=== PATIENT | male | born 1995 | race Caucasian/White ===

== ENCOUNTER 2018-01-12 19:05 | Emergency (ER) | payer OTHER, SELFPAY ==
[2018-01-12 19:17] VITALS: BP 138/76; PULSE 98; RESP 18; TEMP 38; O2SAT 99; BMI 21.2
[2018-01-12 19:23] VITALS: TEMP 38
[2018-01-12] MEDS: IBUPROFEN 400 MG TABLET 800 MG PO (19:23)
--- NOTE | 2018-01-12 21:06 | ED_ITS ---
HPI - URI/Sore Throat <AKIRA Granados - Last Filed: 01/12/18 21:26> General Chief Complaint: Upper Respiratory Symptoms Stated Complaint: STATES WHITE SPOTS IN BACK OF THROAT Time Seen by Provider: 01/12/18 20:54 Source: patient Mode of arrival: ambulatory Limitations: no limitations History of Present Illness HPI Narrative: Patient presents with 1 week of fever, nausea, and sore throat. States he feels like he is swallowing glass. Also has low-grade fever. Slight cough, slight congestion but that is only present today. Denies chest pain, denies shortness of breath, denies abdominal pain. Has been exposed to illness through . Concerns strep throat. States he saw red and white spots on back throat. Related Data Previous Rx's Medication Instructions Recorded amoxicillin 1,000 mg PO BID 10 Days #40 cap 01/12/18 Allergies Allergy/AdvReac Type Severity Reaction Status Date / Time No Known Drug Allergies Allergy Verified 01/12/18 19:19 Review of Systems <AKIRA Granados - Last Filed: 01/12/18 21:26> Review of Systems GENERAL: See HPI HEENT: HPI RESPIRATORY: Denies dyspnea, cough, wheezing, hemoptysis, sputum. CARDIOVASCULAR: Denies chest pain, palpitations, orthopnea, edema, GASTROINTESTINAL: Denies nausea, vomiting, abdominal pain, diarrhea, constipation, melena. : Denies dysuria, frequency, incontinence, hematuria, urinary retention. MUSCULOSKELETAL: denies weakness, joint pain, or bony pain SKIN: Denies rash, skin lesions, or other NEUROLOGIC: Denies weakness, headache, numbness, change in speech, confusion, seizures, incoordination. PSYCHIATRIC: No concerning psychosocial issues. 12 point review of systems is negative except for those stated above Exam <AKIRA Granados - Last Filed: 01/12/18 21:26> Narrative Exam Narrative: GENERAL: This is a well-nourished, well-developed patient, in no acute distress HEAD: Atraumatic. Normocephalic. No temporal or scalp tenderness. EYES: Pupils equal round and reactive. Extraocular motions intact. No scleral icterus. No injection or drainage. ENT: Nose without bleeding, purulent drainage or septal hematoma. Tonsillar hypertrophy present 2+ tonsils. Uvula midline. Tonsils are erythematous with white exudate bilaterally. NECK: Trachea midline. No JVD or lymphadenopathy. Supple, nontender, no meningeal signs. CARDIOVASCULAR: Regular rate and rhythm without murmurs, gallops, or rubs. RESPIRATORY: Clear to auscultation. Breath sounds equal bilaterally. No wheezes , rales, or rhonchi. GASTROINTESTINAL: Abdomen soft, non-tender, nondistended. No hepato-splenomegaly , or palpable masses. No guarding. NEURO: AOx3. SKIN: No rash or erythema. Initial Vital Signs Initial Vital Signs: Vital Signs Temperature 100.4 F H 01/12/18 19:17 Pulse Rate 98 H 01/12/18 19:17 Respiratory Rate 18 01/12/18 19:17 Blood Pressure 138/76 H 01/12/18 19:17 Pulse Oximetry 99 01/12/18 19:17 <Conor Lehman MD - Last Filed: 01/13/18 07:46> Initial Vital Signs Initial Vital Signs: Vital Signs Temperature 100.4 F H 01/12/18 19:17 Pulse Rate 98 H 01/12/18 19:17 Respiratory Rate 18 01/12/18 19:17 Blood Pressure 138/76 H 01/12/18 19:17 Pulse Oximetry 99 01/12/18 19:17 Course <AKIRA Granados - Last Filed: 01/12/18 21:26> Hospital Course: Patient presented with chief complaint of sore throat as well as fever and nausea. Rapid strep was negative. However exam was concerning for tonsillitis. He was given ibuprofen for pain and fever in triage. Given his exam I ordered 1000 mg of p.o. amoxicillin to initiate treatment for tonsillitis as all pharmacies are closed. Otherwise patient is hemodynamically stable, alert and appropriate. Discussed at length with patient following up if new or worsening symptoms. Orders Ordered: Discontinued Medications Amoxicillin (Trimox) 1,000 mg PO NOW ONE Stop: 01/12/18 21:00 Last Admin: 01/12/18 21:08 Dose: 1,000 mg Ibuprofen (Advil) 800 mg PO NOW ONE Stop: 01/12/18 19:20 Last Admin: 01/12/18 19:23 Dose: 800 mg Vital Signs - 8 hr 01/12/18 19:17 01/12/18 19:23 01/12/18 21:21 Temperature 100.4 F H 100.4 F H 98.7 F Pulse Rate 98 H 80 Respiratory Rate 18 18 Blood Pressure 138/76 H 130/70 H Pulse Oximetry 99 100 <Conor Lehman MD - Last Filed: 01/13/18 07:46> Orders Ordered: Discontinued Medications Amoxicillin (Trimox) 1,000 mg PO NOW ONE Stop: 01/12/18 21:00 Last Admin: 01/12/18 21:08 Dose: 1,000 mg Ibuprofen (Advil) 800 mg PO NOW ONE Stop: 01/12/18 19:20 Last Admin: 01/12/18 19:23 Dose: 800 mg Vital Signs - 8 hr 01/12/18 19:17 01/12/18 19:23 01/12/18 21:21 Temperature 100.4 F H 100.4 F H 98.7 F Pulse Rate 98 H 80 Respiratory Rate 18 18 Blood Pressure 138/76 H 130/70 H Pulse Oximetry 99 100 MDM - URI/Sore Throat <AKIRA Granados - Last Filed: 01/12/18 21:26> MDM Narrative Medical decision making narrative: Patient's rapid strep was negative. However exam was very concerning for tonsillitis with erythema and exudate bilaterally. He is hemodynamically stable with good vital signs. He was treated with amoxicillin in the emergency department as pharmacies are closed at this point in time. Discussed at length with patient follow up if worsening or new symptoms. I gave him a prescription for amoxicillin as per up-to-date. Discharge Plan Departure Patient Disposition: Home, Self-Care Clinical Impression: Acute tonsillitis Discharge Date/Time: 01/12/18 21:30 Interventions: ED Discharge Assessment Last Done: 01/12/18 21:21 Instructions: DI for Strep Throat Activity Restrictions/Additional Instructions: I have given you discharge instructions for strep throat, as they are very similar for tonsillitis. Continue to take [id number] pain medication as needed. Please take your full course of antibiotics. If you feel worse or do not feel better, I want you to be re-evaluated. Prescriptions: New amoxicillin 500 mg capsule 1,000 mg PO BID 10 Days Qty: 40 RF: 0 <Conor Lehman MD - Last Filed: 01/13/18 07:46> Cosign ED Attending Cosnatalieature Attestation: I was immediately available in the department for consultation. Documentation has been reviewed. I agree with assessment and plan.
[2018-01-12] MEDS: AMOXICILLIN 250 MG CAPSULE 1000 MG PO (21:08)
[2018-01-12 21:21] VITALS: BP 130/70; PULSE 80; RESP 18; TEMP 37.1; O2SAT 100
== END 2018-01-12 21:30 | disposition home or self-care (01) ==
PROVIDERS: Emergency Provider Nurse Practitioner Family
DX: J03.80 Acute tonsillitis due to other specified organisms (principal)
CPT/HCPCS: 87880; 99282; 99283